=== PATIENT | male | born 1965 | race Caucasian/White ===

== ENCOUNTER 2021-04-20 06:31 | Day surgery (SDC) | payer OTHER, SELFPAY ==
--- NOTE | 2021-04-20 06:55 | PCM.HP.BLA ---
History and Physical Date of Admission: 04/20/21 Visit Reasons: CSCOPE, COUMADIN Chief Complaint: Colonoscopy [employer] Required: No Is patient in pain?: No Allergies No Known Allergies Allergy (Verified 04/13/21 14:38) Medications lisinopril 10 mg tablet 20 mg PO DAILY tab 04/13/21 [History Confirmed 04/13/21] metoprolol succinate 100 mg tablet,extended release 24 hr 100 mg PO DAILY 04/13/21 [History Confirmed 04/13/21] [facility] Medical History (Updated 04/13/21 @ 14:[address] Madi Robison MD) DVT (deep venous thrombosis) Surgical History (Updated 04/13/21 @ 14:35 by Brittani Suresh) History of bilateral inguinal hernia repair Family History Unknown No problems noted. Social History adopted: Yes Smoking Status: Never smoker alcohol intake: current alcohol intake frequency: holidays/special occasions only substance use type: does not use HPI HPI HPI: JAYSON GARCIA, is a 55 M who presents to the office today for surgical consultation regarding a colonoscopy. The patient is referred by Dr. Manuel Smith and a written copy of my surgical consult and recommendations will return to him. It is of note that October 09 the patient presented with complaints of left lower extremity swelling. October 12, 2020 duplex exam demonstrated acute proximal left femoral vein DVT. He has been treated with Lovenox 120 mg subcutaneously every 12 hours. Is referred for screening colonoscopy. It is anticipated that he will be can reverted to Coumadin subsequent to his endoscopy. I previously assisted the patient August 13, 2015 with a laparoscopic right inguinal herniorrhaphy and an umbilical herniorrhaphy with an 8 cm Ventralex mesh. The patient works at [employer]. He does not know the etiology to his left lower extremity DVT and he has persistent swelling but no pain. Most of the time he wear support hose. He has not had the COVID-19 vaccine and we did have discussion today regarding benefit risk ROS General General: No weight change, appetite, fatigue, colon cancer, breast cancer or weakness HEENT HEENT: No difficulty swallowing, eye injury, eye surgery, swollen glands or hoarseness Endo Endocrine: No thyroid disease, diabetes mellitus, thyroid cancer, Hair loss, heat intolerance or cold intolerance Skin Skin: No rash or changing moles Breast Breast: No left breast lump, right breast lump, nipple discharge, breast pain, abnormal mammogram, abnormal US or breast enlargement Musc Musculoskeletal: No back problems, arthritis, rheumatoid arthritis, gout or joint pain Cardio Cardiovascular: No murmur, pacemaker, heart disease, atrial fibrillation, high blood pressure, heart attack, heart stent, palpitations, shortness of breat with exertion or chest pain Psych Psychiatric: No depression, anxiety or hearing voices Resp Respiratory: No shortness of breath, No sleep apnea, No cough, No COPD, No asthma, No emphysema and No wheezing Gastro Gastrointestinal: No abdominal pain, No nausea or vomiting, No diarrhea, No constipation, No blood in stool, No acid reflux, No hemorrhoids, No ulcers, No gallbladder problem and No black,tarry stools Otf Hematologic: Yes blood thinners, No blood disorders, No bleeding, No anemia and Yes blood clots Neuro Neurologic: No system reviewed and no additional complaints, except as documented, No as per HPI, No abnormal gait, No abnormal hearing, No abnormal movements, No abnormal speech, No behavioral changes, No burning sensations, No confusion, No convulsions, No disequilibrium, No dizziness, No localized weakness, No frequent falls, No headache(s), No lack of coordination, No loss of vision, No memory loss, No numbness, No other visual disturbances, No radicular pain, No restless legs, No sensory deficit, No syncope, No tingling, No tremor(s), No weakness and No other Exam Const General: cooperative, healthy appearing, comfortable and no acute distress Nutritional Appearance: obese Orientation: alert and awake [facility] Head: normal to inspection Eyes General: appearance normal, both eyes and all related structures Chest Other: Increased anterior posterior diameter Resp Effort & Inspection: normal respiratory effort Auscultation: clear to auscultation bilaterally Cardio Rate: regular rate Rhythm: regular rhythm GI Other: Soft, overweight, nontender, healed and solid umbilical hernia repair Musc Cervical Spine: normal cervical lordosis Neuro Cognition: normal cognition Extrem Other: Notable nonpitting swelling of the left lower extremity much more so than the right. Nontender. No ulcerations Psych Affect: normal affect Assessment and Plan Assessment and Plan (1) Screening for intestinal cancer: Status: Acute (2) Anticoagulation adequate: Status: Acute (3) DVT (deep venous thrombosis): Status: Acute Plan - Dr. Madi Robison MD: I concur with recommendations to proceed with a screening colonoscopy with possible biopsy or polypectomy as indicated. He is aware of the technique, benefit, risk and alternatives. Has had an opportunity to ask questions answered. We additionally did discuss the benefit risk of the COVID-19 vaccine. Based upon his medical comorbidities, body habitus I offered to him to suggested that he consider it. The patient is on Lovenox therapeutic anticoagulation. We will have him hold his dosing the evening before and the morning of his planned colonoscopy. I will utilize monitored anesthesia care. If his colonoscopy is uneventful then he can resume his Lovenox the day of his procedure. I additionally discussed with him postphlebitic syndrome and chronic lower extremity swelling. The patient states that he is mostly compliant with his support hose and I encouraged and congratulated him on that. It is of note that today he was not wearing the stocking I appreciate the opportunity of continuing to assist with the surgical care Copy: Dr. Manuel Smith and Dr. Jamin Robison M.D., F.A.C.S. I have re-examined the patient. There are no clinical changes since date of exam.
[2021-04-20 07:03] VITALS: BP 135/86; PULSE 89; RESP 18; TEMP 36.8; O2SAT 98; BMI 35.6
[2021-04-20] MEDS: Lactated Ringers 1,000 ML 100 ML IV (07:11)
[2021-04-20 08:31] VITALS: BP 105/65; BP 135/86; PULSE 90; RESP 16; TEMP 36.6; O2SAT 96
--- NOTE | 2021-04-20 08:32 | OP.COLON_ITS ---
Patient Name: Servando Frank Procedure Date: 04/20/2021 8:07 AM Date of : 1965 Age: 55 Procedure: Colonoscopy Indications: Screening for colorectal malignant neoplasm Providers: Madi Robison MD Referring MD: Madi Robison MD Medicines: See the Anesthesia note for documentation of the administered medications Patient Profile: Last Colonoscopy: none. The patient's first colonoscopy is today. Complications: No immediate complications. Procedure: Pre-Anesthesia Assessment: - Prior to the procedure, a History and Physical was performed, and patient medications and allergies were reviewed. The patient's tolerance of previous anesthesia was also reviewed. The risks and benefits of the procedure and the sedation options and risks were discussed with the patient. All questions were answered, and informed consent was obtained. Prior Anticoagulants: The patient has taken Lovenox (enoxaparin), last dose was day of procedure. ASA Grade Assessment: II - A patient with mild systemic disease. After reviewing the risks and benefits, the patient was deemed in satisfactory condition to undergo the procedure. After I obtained informed consent, the scope was passed under direct vision. Throughout the procedure, the patient's blood pressure, pulse, and oxygen saturations were monitored continuously. The colonoscope was introduced through the anus and advanced to the cecum, identified by appendiceal orifice and ileocecal valve. The colonoscopy was performed without difficulty. The patient tolerated the procedure well. The quality of the bowel preparation was good. The ileocecal valve and the appendiceal orifice were photographed. Scope In: 8:16:00 AM Scope Withdrawal Time 0 hours 8 minutes 13 seconds Scope Out: 8:27:50 AM Total Procedure Duration Time 0 hours 11 minutes 50 seconds Findings: The perianal and digital rectal examinations were normal. Pertinent negatives include normal prostate (size, shape, and consistency). The colon (entire examined portion) appeared normal. Impression: - The entire examined colon is normal. - No specimens collected. Recommendation: - Discharge patient to home. - Resume previous diet. - Continue present medications. - Repeat colonoscopy in 10 years for screening purposes. Procedure Code(s): --- Professional --- 51888, Colonoscopy, flexible; diagnostic, including collection of specimen(s) by brushing or washing, when performed (separate procedure) Diagnosis Code(s): --- Professional --- Z12.11, Encounter for screening for malignant neoplasm of colon CPT copyright 2017 [employer]. All rights reserved. The codes documented in this report are preliminary and upon booking officer review may be revised to meet current compliance requirements. Madi Robison MD 04/20/2021 8:32:17 AM This report has been signed electronically. Number of Addenda: 0 Note Initiated On: 04/20/2021 8:07 AM
--- NOTE | 2021-04-20 08:33 | OP.CCLET_ITS ---
04/20/2021 Manuel Smith [address] [place] [address] Re : Colonoscopy procedure for Servando Frank Dear Dr. Smith This procedure was performed on Tuesday, April 20, 2021. My impressions and recommendations are as follows: Impressions : - The entire examined colon is normal. - No specimens collected. Recommendations : - Discharge patient to home. - Resume previous diet. - Continue present medications. - Repeat colonoscopy in 10 years for screening purposes. My findings are described in the full procedure note, which is enclosed. If I can be of further assistance, please feel free to contact me at Doctor phone number(s): Work: . Sincerely, Madi Robison MD 04/20/2021 8:32:17 AM This report has been signed electronically.
[2021-04-20 08:36] VITALS: BP 119/81; BP 135/86; PULSE 95; RESP 16; O2SAT 94
[2021-04-20 08:41] VITALS: BP 118/79; BP 135/86; PULSE 90; RESP 16; TEMP 37.1; O2SAT 95
[2021-04-20 08:55] VITALS: BP 135/86
== END 2021-04-20 09:09 | disposition home or self-care (01) ==
LOC: EN 06:32 → AC 06:33
PROVIDERS: PCP Family Medicine; Referring Provider Family Medicine; Visit Provider Surgery
PROC: 0DJD8ZZ Inspection of Lower Intestinal Tract, Via Natural or Artificial Opening Endoscopic (ICD-10-PCS; CPT 45378; principal; 2021-04-20 07:55)
DX: Z12.11 Encounter for screening for malignant neoplasm of colon (principal); E66.9 Obesity, unspecified; I82.412 Acute embolism and thrombosis of left femoral vein; I10 Essential (primary) hypertension; Z68.35 Body mass index [BMI] 35.0-35.9, adult; Z79.02 Long term (current) use of antithrombotics/antiplatelets
CPT/HCPCS: 45378; 87426; C9803; J7120; J2405

== ENCOUNTER → 2023-07-18 | Outpatient (CLI) | payer BC, SELFPAY ==
--- NOTE | 2023-07-18 08:30 | PET_ITS ---
EXAMINATION: FDG PET/CT ? INDICATIONS: 57-year-old male with a history of renal cell carcinoma, presenting for restaging examination. ? COMPARISON EXAMINATION: None available ? INDEX LESION SIZE SUV INTERPRETATION Left upper lung field, left upper lobe 11.8 mm 6.8 Fulfills quantitative criteria for viable neoplasm, histopathologic analysis recommended. ? TECHNIQUE: Following the intravenous administration of 13.85 mCi of F-18 deoxyglucose via the left antecubital fossa, multiplanar image acquisitions of the head, neck, chest, abdomen and pelvis to the level of the midthigh, obtained at one-hour post radiopharmaceutical administration contemporaneously interpreted with the current CT of the chest, abdomen and pelvis dated 07/18/2023 via coregistration reveal: ? SERUM GLUCOSE LEVEL:? 131 mg/dL? HEIGHT:?? 75 inches WEIGHT:?? 290 pounds ? FINDINGS: ? HEAD/NECK:? There is no evidence of abnormal increased glucose metabolism in the pharyngeal mucosal space, parapharyngeal space, oropharynx, bilateral-lateral and anterior neck, hypopharynx and distribution of the larynx. ? The visualized portion of the cerebral cortical-subcortical structures demonstrate symmetric and preserved glucose metabolism. ? CHEST:? Facilitated uptake is noted in the left upper medial lung zone, left upper lobe. The calculated maximum standard uptake value is 6.8. The maximal axial diameter of the corresponding morphologic abnormality is 11.8 mm. ? CT of the chest demonstrates the following anatomic characteristics: The calcified density defined in the right mid lung field, right lower lobe demonstrates no evidence of increased tracer uptake. Bilateral axillary soft tissue densities are ametabolic. Mediastinal soft tissue reveals no evidence of increased tracer uptake. Coronary artery calcification is observed. ? ABDOMEN/PELVIS:? Normal physiologic distribution of the radiopharmaceutical is identified in the hepatic (4.6) and splenic parenchyma, left renal unit, urinary bladder, and visualized intestinal tract. ? CT of the abdomen and pelvis is remarkable for the following: Surgical clips are identified in the right renal bed with absence of the right renal unit commensurate with previous right nephrectomy. Atherosclerotic calcification is defined in the abdominal aorta without evidence of dilatation, aneurysm formation. Pelvic arterial calcification is observed. A fat containing right inguinal hernia is noted. Right and left inguinal soft tissue densities reveal no evidence of increased tracer uptake. ? SKELETAL:? There is no evidence of quantitatively significant enhanced glucose metabolism on meticulous inspection of the appendicular and axial skeletal structures. ? Degenerative changes defined in the thoracic and lumbar spine demonstrate no evidence of increased glucose metabolism. There are no sclerotic, mixed sclerotic-lytic, or primarily lytic changes defined in the axial skeletal structures with evidence of increased FDG uptake. ? PET/PET/CT Tumor Base -Thigh Subs IMPRESSION: 1. ABNORMAL EXAMINATION INDICATIVE OF MALIGNANT-VIABLE NEOPLASM. 2. Increased radiopharmaceutical concentration defined in the left upper lung field, left upper lobe fulfills quantitative criteria for viable neoplasm. Histopathologic analysis is recommended. 3. No other definitive scintigraphic abnormalities are demonstrated. Electronic Signature Ricardo Song D.O. Accurate Quantification of SUVs for this report are calculated using the exclusive [employer]. ([place]. Patent No. [id number] [phone] B2 [phone] [place] patent [phone]). Standardization and correction of the FDG SUV metric via [employer] technology allow for vendor non-specific objective quantitative examination comparison and optimization of the sensitivity and specificity of the FDG PET-CT examination. . [email or web address] Electronically Signed: Ricardo Song DO at 22:14 EST ,
== END | disposition home or self-care (01) ==
LOC: ONC 08:03
PROVIDERS: PCP Family Medicine; Referring Provider Internal Medicine Hematology & Oncology; Visit Provider Internal Medicine Hematology & Oncology
DX: C64.1 Malignant neoplasm of right kidney, except renal pelvis (principal); N18.31 Chronic kidney disease, stage 3a; R91.1 Solitary pulmonary nodule
CPT/HCPCS: 78815; A9552

== ENCOUNTER 2023-12-29 10:48 | Inpatient (IN) | payer OTHER, SELFPAY ==
[2023-12-29 10:48] VITALS: BP 129/76; PULSE 79; RESP 19; TEMP 35.8; O2SAT 96; BMI 34.9
--- NOTE | 2023-12-29 11:16 | ED.RN ---
Manuel ROMANO notified of vt reading for BGL. IV fluids initiated
[2023-12-29] MEDS: 0.9% Normal Saline (1000mL) 1,000 ML 999 ML IV ×3 (11:25→13:19)
--- NOTE | 2023-12-29 11:25 | EX.ED.DYSGE1 ---
HPI <CLOVIS Peralta - Last Filed: 12/29/23 12:41> History of Present Illness Chief Complaint: Hyperglycemia Narrative Narrative: Patient is a 58-year-old male with history of blood clots on Eliquis, history of kidney cancer, hypertension, obesity presents to the emergency department for hyperglycemia. Per the patient, the last 3 days, the patient's been more clammy in the morning, has been feeling more fatigued, having blurred vision as well as frequent urination. Patient states that he took his blood sugar with one of his friends meters, and it was 500. He called his doctor told to go to the emergency department. Patient denies any nausea or vomiting. Patient [place] any chest pain or shortness of breath. PFSH <CLOVIS Peralta - Last Filed: 12/29/23 12:41> [facility] Medical History (Updated 12/29/23 @ 19:[address] Anuj Ambriz, DO) Cancer of kidney Alcohol use Non-smoker History of edema Hypertension DVT (deep venous thrombosis) Home Medications ?Medication ?Instructions ?Recorded ?Last Taken ?Type acetaminophen 500 mg capsule 500 mg PO Q8H PRN pain 12/29/23 Unknown History amlodipine 10 mg tablet 10 mg PO DAILY HTN 12/29/23 12/29/23 08:00 History apixaban 5 mg tablet (Eliquis) 5 mg PO BID DVT 12/29/23 12/29/23 08:00 History carvedilol 25 mg tablet 25 mg PO BID Heart 12/29/23 12/29/23 08:00 History lisinopril 40 mg tablet 80 mg PO DAILY HTN 12/29/23 12/29/23 08:00 History Allergy/AdvReac Type Severity Reaction Status Date / Time No Known Allergies Allergy Verified 04/19/21 09:40 Family History (Updated 04/13/21 @ 14:35 by Brittani Suresh) Unknown No problems noted. Surgical History H/O kidney removal Hx of hernia repair History of bilateral inguinal hernia repair Social History (Updated 12/29/23 @ 13:30 by Rebekah Frederick) adopted: Yes Smoking Status: Never smoker alcohol intake: current alcohol intake frequency: holidays/special occasions only substance use type: does not use ROS <BEVERLY PeraltaC - Last Filed: 12/29/23 12:41> ROS ED ROS Narrative Constitutional: Negative for fever, chills, weight loss. Positive for weakness Eyes: Negative for vision loss, double vision. Positive vision change ENT: Negative for any sore throat, ear pain, congestion Cardiovascular: Negative for any chest pain, tightness, palpitations Respiratory: Negative for any cough, sputum production, hemoptysis, dyspnea, dyspnea on exertion, orthopnea Gastrointestinal: Negative for any abdominal pain, nausea, vomiting, diarrhea, constipation, blood in stool, blood in vomit : Negative for any dysuria, retention, blood in urine. Positive for urinary frequency Muscle skeletal: Negative for any neck pain, back pain. Neurological: Negative for any headache, syncope, dizziness Skin: Negative for any rashes, itching, abrasions, lacerations Psychiatric: Negative for any depression, anxiety, stress, suicidal ideation, homicidal ideation Hematologic: Negative for any excessive bruising, easy bleeding EXAM <CLOVIS Peralta - Last Filed: 12/29/23 12:41> Physical Exam Narrative Exam Narrative: Vital signs reviewed. HEET: Head normocephalic atraumatic, TMs clear bilaterally. Posterior pharynx is clear, moist mucous membranes. Nares clear bilaterally. Neck: Supple with no lymphadenopathy or tenderness. No signs of meningismus. Cardiac: Regular rate and rhythm no murmurs gallops or rubs, equal peripheral pulses bilaterally. Respiratory: Lungs clear to auscultation bilaterally. No chest tenderness. Abdomen: Soft, nontender, nondistended. No abdominal bruit or pulsatile masses. No hepatosplenomegaly Extremities: No peripheral edema, no signs of gross trauma or deformity. Active full range of motion of all extremities. Neuro: Cranial nerves II through XII intact, no focal neurological deficits. Skin: Clean dry and intact with no rash, purpura, petechiae, vesicles or pustules. Backs/flank: No CVA tenderness, no midline spinal tenderness, no deformity. Psych: Normal mood and affect. No SI, HI or acute psychosis. Const Vital Signs: 12/29/23 10:48 12/29/23 11:17 Temperature 96.4 F L Temperature Source Temporal Pulse Rate 79 Respiratory Rate 19 H Respiratory Effort Normal Non-Labored Respiratory Pattern Normal Blood Pressure 129/76 H Blood Pressure Mean 93 Pulse Ox 96 Oxygen Delivery Method Room Air <Dr. Anuj Ambriz DO - Last Filed: 12/29/23 19:17> Physical Exam Const Vital Signs: 12/29/23 10:48 12/29/23 11:17 Temperature 96.4 F L Temperature Source Temporal Pulse Rate 79 Respiratory Rate 19 H Respiratory Effort Normal Non-Labored Respiratory Pattern Normal Blood Pressure 129/76 H Blood Pressure Mean 93 Pulse Ox 96 Oxygen Delivery Method Room Air MDM <CLOVIS Peralta - Last Filed: 12/29/23 12:41> [facility] Lab Data Labs: Laboratory Results - last 24 hr 12/29/23 12/29/23 12/29/23 11:02 11:15 11:44 WBC 5.2 RBC 4.53 L Hgb 13.5 Hct 39.5 L MCV 87.2 MCH 29.8 MCHC 34.2 RDW Std Deviation 39.2 RDW Coeff of Ramu 12.2 Plt Count 141 L MPV 11.2 Immature Gran % (Auto) 0.400 Neut % (Auto) 70.4 H Lymph % (Auto) 20.0 [place] % (Auto) 6.6 Eos % (Auto) 1.6 Baso % (Auto) 1.0 Absolute Neuts (auto) 3.6 Absolute Lymphs (auto) 1.03 Nucleated RBC % 0 Sodium 120 L Potassium 5.9 H Chloride 89 L Carbon Dioxide 20.0 L Anion Gap 11 BUN 53 H Creatinine 3.01 H Estim Creat Clear Calc 38.84 Est GFR (MDRD) Af Amer 28 L Est GFR (MDRD) Non-Af 23 L BUN/Creatinine Ratio 17.6 Glucose 882 H* Hemoglobin A1c 9.3 H Calcium 8.9 Total Bilirubin 1.30 H AST 30 ALT 34 Alkaline Phosphatase 112 Total Protein 7.7 Albumin 3.9 Globulin 3.8 Albumin/Globulin Ratio 1.0 Urine Color Yellow Urine Clarity Clear Urine pH 6.0 Ur Specific [place] 1.010 Urine Protein Negative Urine Glucose (UA) 1000 H Urine Ketones 5 H Urine Occult Blood 25 H Urine Nitrite Negative Urine Bilirubin Negative Urine Urobilinogen Normal Ur Leukocyte Esterase Negative Urine RBC 0 SEEN Urine WBC 0-5 SEEN Ur Squamous Epith Cells 0-5 SEEN Urine Bacteria RARE Urine Mucus 0 SEEN Acetone Level POC Glucose > 500 H* 12/29/23 11:48 WBC RBC Hgb Hct MCV MCH MCHC RDW Std Deviation RDW Coeff of Ramu Plt Count MPV Immature Gran % (Auto) Neut % (Auto) Lymph % (Auto) [place] % (Auto) Eos % (Auto) Baso % (Auto) Absolute Neuts (auto) Absolute Lymphs (auto) Nucleated RBC % Sodium Potassium Chloride Carbon Dioxide Anion Gap BUN Creatinine Estim Creat Clear Calc Est GFR (MDRD) Af Amer Est GFR (MDRD) Non-Af BUN/Creatinine Ratio Glucose Hemoglobin A1c Calcium Total Bilirubin AST ALT Alkaline Phosphatase Total Protein Albumin Globulin Albumin/Globulin Ratio Urine Color Urine Clarity Urine pH Ur Specific [place] Urine Protein Urine Glucose (UA) Urine Ketones Urine Occult Blood Urine Nitrite Urine Bilirubin Urine Urobilinogen Ur Leukocyte Esterase Urine RBC Urine WBC Ur Squamous Epith Cells Urine Bacteria Urine Mucus Acetone Level NEGATIVE POC Glucose EKG EKG shows normal sinus rhythm: Attestation: I personally reviewed and interpreted this EKG as follows: Interpretation: Sinus Rhythm Comments: EKG shows normal sinus rhythm, rate of 70 bpm, NM 178 ms, QRS duration 180 ms, no acute ST elevation, no acute infarct noted. Treatment and Re-Evaluation :: Differential diagnosis includes however is not limited to: DKA, hyperglycemia, new onset type 2 diabetes, renal insufficiency, dehydration Patient appears to be in no obvious respiratory distress, vital signs are stable, patient is not toxic appearing. Patient presents to the emergency department with complaints of elevated blood sugar as well as symptoms such as blurred vision frequent urination, clamminess. Patient did have a blood sugar over 600 here. Patient be given 2 L of normal saline. Patient received some basic laboratory values as well as an acetone to rule out any DKA. Patient will be reevaluated. Patient's laboratory values showed a normal CBC, patient's chemistries show multiple abnormalities. Patient's sodium was 120, this is likely secondary to the patient's glucose of 882. Total bilirubin 1.3, patient's acetone level was negative. Patient's anion gap was negative. Patient's creatinine was 3.01. I did look at the patient's past creatinine from a couple months ago, and it was 1.5. Secondary to the patient having 1 kidney, I do believe the patient would benefit from admission to the hospital. I will reach out to the hospitalist. Patient acetone was negative. Patient was given 2 L normal saline. I will give the patient 10 units of subcu insulin. The patient will also receive EKG. I spoke with admitting physician, patient admitted to PCU full. EKG was unremarkable. Patient remained stable for admission. <Dr. Anuj Ambriz, DO - Last Filed: 12/29/23 19:17> [facility] Lab Data Attestation: I reviewed the patient's lab results. Labs: Laboratory Results - last 24 hr 12/29/23 12/29/23 12/29/23 11:02 11:15 11:44 WBC 5.2 RBC 4.53 L Hgb 13.5 Hct 39.5 L MCV 87.2 MCH 29.8 MCHC 34.2 RDW Std Deviation 39.2 RDW Coeff of Ramu 12.2 Plt Count 141 L MPV 11.2 Immature Gran % (Auto) 0.400 Neut % (Auto) 70.4 H Lymph % (Auto) 20.0 [place] % (Auto) 6.6 Eos % (Auto) 1.6 Baso % (Auto) 1.0 Absolute Neuts (auto) 3.6 Absolute Lymphs (auto) 1.03 Nucleated RBC % 0 Sodium 120 L Potassium 5.9 H Chloride 89 L Carbon Dioxide 20.0 L Anion Gap 11 BUN 53 H Creatinine 3.01 H Estim Creat Clear Calc 38.84 Est GFR (MDRD) Af Amer 28 L Est GFR (MDRD) Non-Af 23 L BUN/Creatinine Ratio 17.6 Glucose 882 H* Hemoglobin A1c 9.3 H Calcium 8.9 Total Bilirubin 1.30 H AST 30 ALT 34 Alkaline Phosphatase 112 Total Protein 7.7 Albumin 3.9 Globulin 3.8 Albumin/Globulin Ratio 1.0 Urine Color Yellow Urine Clarity Clear Urine pH 6.0 Ur Specific [place] 1.010 Urine Protein Negative Urine Glucose (UA) 1000 H Urine Ketones 5 H Urine Occult Blood 25 H Urine Nitrite Negative Urine Bilirubin Negative Urine Urobilinogen Normal Ur Leukocyte Esterase Negative Urine RBC 0 SEEN Urine WBC 0-5 SEEN Ur Squamous Epith Cells 0-5 SEEN Urine Bacteria RARE Urine Mucus 0 SEEN Acetone Level POC Glucose > 500 H* 12/29/23 11:48 WBC RBC Hgb Hct MCV MCH MCHC RDW Std Deviation RDW Coeff of Ramu Plt Count MPV Immature Gran % (Auto) Neut % (Auto) Lymph % (Auto) [place] % (Auto) Eos % (Auto) Baso % (Auto) Absolute Neuts (auto) Absolute Lymphs (auto) Nucleated RBC % Sodium Potassium Chloride Carbon Dioxide Anion Gap BUN Creatinine Estim Creat Clear Calc Est GFR (MDRD) Af Amer Est GFR (MDRD) Non-Af BUN/Creatinine Ratio Glucose Hemoglobin A1c Calcium Total Bilirubin AST ALT Alkaline Phosphatase Total Protein Albumin Globulin Albumin/Globulin Ratio Urine Color Urine Clarity Urine pH Ur Specific [place] Urine Protein Urine Glucose (UA) Urine Ketones Urine Occult Blood Urine Nitrite Urine Bilirubin Urine Urobilinogen Ur Leukocyte Esterase Urine RBC Urine WBC Ur Squamous Epith Cells Urine Bacteria Urine Mucus Acetone Level NEGATIVE POC Glucose Treatment and Re-Evaluation :: Differential diagnosis includes however is not limited to: DKA, hyperglycemia, new onset type 2 diabetes, renal insufficiency, dehydration Patient appears to be in no obvious respiratory distress, vital signs are stable, patient is not toxic appearing. Patient presents to the emergency department with complaints of elevated blood sugar as well as symptoms such as blurred vision frequent urination, clamminess. Patient did have a blood sugar over 600 here. Patient be given 2 L of normal saline. Patient received some basic laboratory values as well as an acetone to rule out any DKA. Patient will be reevaluated. Patient's laboratory values showed a normal CBC, patient's chemistries show multiple abnormalities. Patient's sodium was 120, this is likely secondary to the patient's glucose of 882. Total bilirubin 1.3, patient's acetone level was negative. Patient's anion gap was negative. Patient's creatinine was 3.01. I did look at the patient's past creatinine from a couple months ago, and it was 1.5. Secondary to the patient having 1 kidney, I do believe the patient would benefit from admission to the hospital. I will reach out to the hospitalist. Patient acetone was negative. Patient was given 2 L normal saline. I will give the patient 10 units of subcu insulin. The patient will also receive EKG. I spoke with admitting physician, patient admitted to PCU full. EKG was unremarkable. Patient remained stable for admission. Attending note: Patient seen and evaluated with vending machine collector. I perform my own [id number] evaluation. I agree with the plan of work-up. Presents polyuria, polydipsia urine frequency over 3 days. No history of diabetes. He states today felt clammy drink some apple juice and cranberry juice before arrival. Blood glucose on arrival over 600. No history of diabetes reported and seen on his phone his A1c was 5.28 June 2023. History of renal cell cancer with right nephrectomy 3 years ago. Denies recent cough, recent vomiting or diarrhea. Denies fevers or any dyspnea. Denies chest pains. On exam alert nontoxic no acute distress soft abdomen. Patient had labs drawn, no DKA on labs. Hyperglycemia sugars in the 800s. Creatinine of 3 elevated from his labs a month ago which was 1.5. His potassium 5.9. EKG obtained shows no hyperkalemic changes. Ordered for total 2 L of fluid, he is given insulin which also help shift his potassium. New MATTEO with single kidney, therefore discussed with hospitalist for admission. Discharge Plan Dx/Rx/DC Orders Clinical Impression: New onset type 2 diabetes mellitus, Acute hyperglycemia, Acute hyperkalemia, Acute kidney injury, Pseudohyponatremia Disposition Disposition: Acute Care Hospital [facility] Discharge Date/Time: 12/29/23 12:48
[2023-12-29 11:31] LABS: Bedside Glucose > 500 mg/dL (74-106)
[2023-12-29 11:31] LABS: Absolute Lymphocyte Count 1.03 X10^3/uL (0.83-4.51); Absolute Neutrophil Count 3.6 X10^3/uL (2.0-7.7); Basophil# 0.05 X10^3/uL; Eosinophil# 0.08 X10^3/uL; Eosinophils% 1.6 % (0-5); Hematocrit 39.5 % (40-54); Hemoglobin 13.5 g/dL (13.0-16.5); Lymphocyte # 1.03 X10^3/ul (0.83-4.51); Mean Corp Hgb Conc 34.2 g/dL (32-36); Mean Corpuscular Hgb 29.8 pg (27.0-32.0); Mean Corpuscular Volume 87.2 fL (80-94); Mean Platelet Vol. 11.2 fl (6.2-12.0); Monocyte# 0.34 X10^3/uL; Monocyte% 6.6 % (0-10); NRBC Flagged by Analyzer 0 % (0-5); Neutrophil # 3.64 X10^3/uL (2.7-7.7); Neutrophil % 70.4 % (47-70); Platelet Count 141 K/mm3 (150-450); RBC Distribution Width CV 12.2 % (11.6-14.6); RBC Distribution Width SD 39.2 fl (35.1-43.9); Red Blood Count 4.53 M/mm3 (4.6-6.2); White Blood Count 5.2 K/mm3 (4.4-11.0)
[2023-12-29 11:52] LABS: Mucous, Urine 0 SEEN /hpf (<or=2+); Red Blood Cells-Urine 0 SEEN /hpf (0-5)
[2023-12-29 11:54] LABS: AST(SGOT) 30 U/L (15-37); Alanine Aminotransfer ALT/SGPT 34 U/L (16-61); Albumin, Serum 3.9 g/dL (3.2-5.0); Alkaline Phosphatase 112 U/L (45-117); Anion Gap 11 (5-15); BUN 53 mg/dL (7-18); BUN/Creat Ratio 17.6 RATIO (10-20); Calcium,Total 8.9 mg/dL (8.5-10.1); Chloride 89 mmol/L (98-107); Creatinine, Serum 3.01 mg/dL (0.70-1.30); EST Glomerular Filtration Rate 23 mL/min (>60); Est Glom Filt Rate - Afr Amer 28 mL/min (>60); Estimated Creatinine Clearance 38.84 ml/min; Globulin 3.8 g/dL (2.2-4.2); Glucose 882 mg/dL (74-106); Potassium 5.9 mmol/L (3.5-5.1); Protein, Total 7.7 g/dL (6.4-8.2); Sodium Level 120 mmol/L (136-145)
[2023-12-29 11:54] LABS: Color, Urine Yellow (Yellow); Glucose, Dipstick 1000 mg/dl (Normal); Ketone-Dipstick 5 mg/dl (Negative); Leukocyte Esterase-Dipstick Negative /ul (Negative); Nitrite-Dipstick Negative (Negative); Occult Blood-Urine 25 /ul (Negative); Protein-Dipstick Negative (Negative); Urine Bilirubin Dipstick Negative (Negative); Urine Clarity Clear (Clear); Urine Urobilinogen Normal (Normal)
--- NOTE | 2023-12-29 11:54 | ED.RN ---
lab called blood sugar 882. dr werner
[2023-12-29 12:01] LABS: Bacteria RARE /hpf (None Seen); Squamous Epithelial Cells - UA 0-5 SEEN /hpf (0-5); White Blood Cells 0-5 SEEN /hpf (0-5)
--- NOTE | 2023-12-29 12:14 | EKG12_ITS ---
Test Reason : Blood Pressure : / mmHG Vent. Rate : 070 BPM Atrial Rate : 070 BPM P-R Int : 178 ms QRS Dur : 108 ms QT Int : 390 ms P-R-T Axes : 042 020 042 degrees QTc Int : 421 ms Normal sinus rhythm Normal ECG Confirmed by MARNIE ROACH MD ([id number]), state editor RADHA ORTEZ ([id number]) on 01/01/2024 8:32:46 AM Referred By: FARRAH Confirmed By:MARNIE ROACH MD
[2023-12-29 12:31] LABS: Hemoglobin A1c 9.3 % (3.8-5.6)
[2023-12-29] MEDS: Insulin Lispro 100 UNIT/ML INSULN.PEN 10 UNIT SC (12:31)
[2023-12-29 12:32] VITALS: BP 142/77; PULSE 66; RESP 16; TEMP 36.7; O2SAT 98
--- NOTE | 2023-12-29 12:54 | PCM.HP.STD ---
HPI - General General Date of Admission: 12/29/23 Date of Service: 12/29/23 HPI Narrative JAYSON GARCIA, is a 58 M who presents with blurry vision and frequent urination. Patient symptoms started a couple of weeks prior to coming in. In addition to above symptoms patient did experience blurry vision. Finally elected to present to the emergency department. Blood glucose on admission was 882 patient was found to have creatinine of 3.01 with potassium of 5.8. Baseline creatinine from September was 1.5. An assessment of hyperosmolar nonketotic state in the newly diagnosed diabetes mellitus type 2 patient was made started on IV fluids insulin and admitted to a monitored bed for subsequent management [facility] Medical History (Updated 12/29/23 @ 12:41 by CLOVIS Peralta) Cancer of kidney Alcohol use Non-smoker History of edema Hypertension DVT (deep venous thrombosis) Home Medications ?Medication ?Instructions ?Recorded ?Last Taken ?Type enoxaparin 120 mg/0.8 mL 120 mg subcut BID BLOOD CLOT 04/19/21 04/19/21 06:00 History subcutaneous syringe acetaminophen 500 mg capsule 500 mg PO Q8H PRN pain 12/29/23 Unknown History amlodipine 10 mg tablet 10 mg PO DAILY 12/29/23 Unknown History apixaban 5 mg tablet (Eliquis) 5 mg PO BID 12/29/23 Unknown History carvedilol 25 mg tablet 25 mg PO BID 12/29/23 Unknown History lisinopril 40 mg tablet 80 mg PO DAILY 12/29/23 Unknown History Allergy/AdvReac Type Severity Reaction Status Date / Time No Known Allergies Allergy Verified 04/19/21 09:40 Family History (Updated 04/13/21 @ 14:35 by Brittani Suresh) Unknown No problems noted. Surgical History (Updated 12/29/23 @ 11:18 by Lauren Devlin) H/O kidney removal Hx of hernia repair History of bilateral inguinal hernia repair Social History (Updated 04/13/21 @ 14:37 by Brittani Suresh) adopted: Yes Smoking Status: Never smoker alcohol intake: current alcohol intake frequency: holidays/special occasions only substance use type: does not use ROS ROS Narrative GENERAL: denies fever, chills, HEENT: Blurry vision RESPIRATORY: denies cough, sputum production, CARDIAC: denies chest pain, palpitations, orthopnea, PND GASTROINTESTINAL: denies abdominal pain, nausea, vomiting, melena, GENITOURINARY: Frequency EXTREMITY: denies swelling MUSCULOSKELETAL: denies current joint pain or tenderness NEUROLOGIC: denies focal numbness, weakness, tingling HEMATOLOGIC: denies easy bruising and/or hemorrhage INTEGUMENT: denies rashes PSYCHIATRIC: denies suicidal or homicidal ideation Vital Signs Vital Signs Vital Signs: 12/29/23 10:48 12/29/23 11:17 12/29/23 12:32 Temperature 96.4 F L 98.1 F Temperature Source Temporal Pulse Rate 79 66 Respiratory Rate 19 H 16 Respiratory Effort Normal Non-Labored Respiratory Pattern Normal Blood Pressure 129/76 H 142/77 H Blood Pressure Mean 93 98 Pulse Ox 96 98 Oxygen Delivery Method Room Air Weight Weight: 126.779 kg Body Mass Index (BMI) 34.9 Physical Exam Narrative GENERAL: cooperative HEENT: Atraumatic; normocephalic EYES; Anicteric, Normal Conjunctiva NECK; supple, normal thyroid, RESPIRATORY: Diminished to auscultation CARDIOVASCULAR: Regular S1 S2, GI: soft, normoactive bowel sounds, : No Renal angle tenderness; EXTREMITIES: No edema, no clubbing, MUSCULOSKELETAL: no muscle wasting NEURO: Awake; no lateralizing signs. SKIN: No Rash PSYCH; Flat affect Results Lab / Micro Data 12/29/23 11:15 12/29/23 11:15 Labs: Laboratory Results - last 24 hr 12/29/23 11:02: POC Glucose > 500 H* 12/29/23 11:15: WBC 5.2, RBC 4.53 L, Hgb 13.5, Hct 39.5 L, MCV 87.2, MCH 29.8, MCHC 34.2, RDW Std Deviation 39.2, RDW Coeff of Ramu 12.2, Plt Count 141 L, MPV 11.2, Immature Gran % (Auto) 0.400, Neut % (Auto) 70.4 H, Lymph % (Auto) 20.0, [place] % (Auto) 6.6, Eos % (Auto) 1.6, Baso % (Auto) 1.0, Absolute Neuts (auto) 3.6, Absolute Lymphs (auto) 1.03, Nucleated RBC % 0, Sodium 120 L, Potassium 5.9 H, Chloride 89 L, Carbon Dioxide 20.0 L, Anion Gap 11, BUN 53 H, Creatinine 3.01 H, Estim Creat Clear Calc 38.84, Est GFR (MDRD) Af Amer 28 L, Est GFR (MDRD) Non-Af 23 L, BUN/Creatinine Ratio 17.6, Glucose 882 H*, Hemoglobin A1c 9.3 H, Calcium 8.9, Total Bilirubin 1.30 H, AST 30, ALT 34, Alkaline Phosphatase 112, Total Protein 7.7, Albumin 3.9, Globulin 3.8, Albumin/Globulin Ratio 1.0 12/29/23 11:44: Urine Color Yellow, Urine Clarity Clear, Urine pH 6.0, Ur Specific [place] 1.010, Urine Protein Negative, Urine Glucose (UA) 1000 H, Urine Ketones 5 H, Urine Occult Blood 25 H, Urine Nitrite Negative, Urine Bilirubin Negative, Urine Urobilinogen Normal, Ur Leukocyte Esterase Negative, Urine RBC 0 SEEN, Urine WBC 0-5 SEEN, Ur Squamous Epith Cells 0-5 SEEN, Urine Bacteria RARE, Urine Mucus 0 SEEN 12/29/23 11:48: Acetone Level NEGATIVE Assessment & Plan Assessment/Plan (1) Acute kidney injury: (2) Acute hyperkalemia: (3) Acute hyperglycemia: (4) New onset type 2 diabetes mellitus: PLAN: Plan Patient is a 58-year-old gentleman presenting with blurred vision and frequent urination found to have hyperglycemia consistent with new onset diabetes melitis type II 1. Hyperosmolar nonketotic state ? Patient has been admitted to monitored bed started on aggressive IV fluid resuscitation as well as insulin with Q4 for BMP ordered 2. Hyponatremia ? Secondary to pseudohyponatremia from patient hyperglycemia do expect improvement with treatment of patient underlying hyperglycemia 3. New onset diabetes mellitus type 2 ? Patient presented with HONK plan is to start long-acting insulin once patient hypoglycemic nonketotic state resolves. Patient was to be provided with diabetic education 4. Acute kidney injury -Patient started on IV fluid with subsequent monitoring of lites ordered 5. Hyperkalemia ? Secondary to MATTEO patient is on lisinopril discontinued patient did receive albuterol as well as glucose with insulin in the ED EKG obtained 6. Chronic kidney disease stage IIIa with baseline creatinine of 1.5 ? Patient presented with MATTEO management as discussed above 7. History of renal cell carcinoma ? Status post nephrectomy with subsequent neoadjuvant chemotherapy with Keytruda 8. History of left lower extremity DVT ? Patient is on systemic anticoagulation with apixaban 9. Hypertension - Blood pressure controlled, home medications except for lisinopril continued with dose adjustment as needed 10. Class I obesity with BMI of 35 ? Complicating care weight loss advised 11. DVT prophylaxis patient already on apixaban Time spent in the patient's overall evaluation,decision-making process, review of diagnostic data, adjustment of management, discussion with other providers, nursing nursing and ancillary staff involved in patient's care documentation, 80 Minutes Advance planning; did discuss with the patient and family regarding advanced directives as well as CODE STATUS. Did explain the various scenarios involved ( FULL CODE, DNR CCA, DNR CCA with no intubation, and DNR CC and what each meant) patient elected to remain full code with CPR and intubation.. Order was placed. Time spent on discussion 16 minutes. Charges/Coding Visit Charges Inpatient E&M: 48527 Init Hosp L3 Procedures Hospitalists Procedures: 47462 Advncd Care Plan 30 Min
[2023-12-29 13:01] VITALS: BMI 34.7
[2023-12-29 13:12] VITALS: BP 135/78; PULSE 68; RESP 18; TEMP 36.9; O2SAT 96
--- NOTE | 2023-12-29 13:49 | CASEMGMT ---
PEEWEE COVINGTON Assessment Face to Face with patient for initial transition planning/care coordination assessment. PEEWEE COVINGTON introduced self and role at [facility], pt voices understanding. Pt is A&Ox4 and is resting comfortably in bed and is calm. Care providers, pharmacy, and demographics verified. Admitting dx: Hyperosmolar Nonketotic State, MATTEO. LACE Strata: 2 PCP: Jamin Pineda Specialists: Sarah (Oncology), Cullen ([facility]), Dr. Macario (K[facility]) Preferred Pharmacy: [facility] Insurance: Kavin Prescription Benefit: Yes LNOK: Jodi Frank (W) Living Arrangements: Pt lives with his in a single story home with a BM with 2 steps to enter ADLs/IADLs: Ind Transportation: Self, DME: [employer]. Pt states that he does not have a BGM at home. Rx filled out and will need MD signing. Rx placed on chart. HHC/SNF: Denies history or needs Pt?s goal: Home Plan: Home with BGM and supplies. Pt states that he feels safe discharging home once he is medically ready. Pt denies further needs. CM to follow. Joe Rashid RN, CM
[2023-12-29] MEDS: Insulin Lispro 100 UNIT in 0.9% Normal Saline (100mL Bag) 99 ML 12.7 UNIT CONT INF (13:52)
[2023-12-29 13:53] LABS: Troponin-I HS 6 pg/mL (3.0-78.0)
[2023-12-29 13:55] LABS: Anion Gap 12 (5-15); BUN 50 mg/dL (7-18); BUN/Creat Ratio 18.5 RATIO (10-20); Calcium,Total 8.8 mg/dL (8.5-10.1); Chloride 95 mmol/L (98-107); Creatinine, Serum 2.71 mg/dL (0.70-1.30); EST Glomerular Filtration Rate 26 mL/min (>60); Est Glom Filt Rate - Afr Amer 31 mL/min (>60); Estimated Creatinine Clearance 43.04 ml/min; Glucose 700 mg/dL (74-106); Potassium 5.2 mmol/L (3.5-5.1); Sodium Level 126 mmol/L (136-145)
[2023-12-29] MEDS: 0.9% Normal Saline (1000mL) 1,000 ML 500 ML IV (14:16)
[2023-12-29 15:50] LABS: Anion Gap 7 (5-15); BUN 45 mg/dL (7-18); BUN/Creat Ratio 18.6 RATIO (10-20); Calcium,Total 8.8 mg/dL (8.5-10.1); Chloride 103 mmol/L (98-107); Creatinine, Serum 2.42 mg/dL (0.70-1.30); EST Glomerular Filtration Rate 30 mL/min (>60); Est Glom Filt Rate - Afr Amer 36 mL/min (>60); Glucose 468 mg/dL (74-106); Potassium 4.1 mmol/L (3.5-5.1); Sodium Level 133 mmol/L (136-145); Troponin-I HS 7 pg/mL (3.0-78.0)
[2023-12-29 15:59] LABS: Bedside Glucose > 500 mg/dL (74-106)
[2023-12-29 15:59] LABS: Bedside Glucose 445 mg/dL (74-106)
[2023-12-29 16:11] LABS: Bedside Glucose 402 mg/dL (74-106)
[2023-12-29] MEDS: 0.9% Normal Saline (1000mL) 1,000 ML 250 ML IV (16:18)
[2023-12-29 17:06] VITALS: BP 141/82; PULSE 69; RESP 18; TEMP 36.9; O2SAT 97
[2023-12-29 17:20] LABS: Bedside Glucose 359 mg/dL (74-106)
[2023-12-29 18:07] LABS: Bedside Glucose 396 mg/dL (74-106)
[2023-12-29 19:13] LABS: Bedside Glucose 371 mg/dL (74-106)
[2023-12-29 19:34] LABS: Anion Gap 6 (5-15); BUN 37 mg/dL (7-18); BUN/Creat Ratio 16.4 RATIO (10-20); Calcium,Total 8.4 mg/dL (8.5-10.1); Chloride 104 mmol/L (98-107); Creatinine, Serum 2.25 mg/dL (0.70-1.30); EST Glomerular Filtration Rate 32 mL/min (>60); Est Glom Filt Rate - Afr Amer 39 mL/min (>60); Estimated Creatinine Clearance 51.84 ml/min; Glucose 362 mg/dL (74-106); Potassium 4.3 mmol/L (3.5-5.1); Sodium Level 134 mmol/L (136-145); Troponin-I HS 7 pg/mL (3.0-78.0)
[2023-12-29 20:20] LABS: Bedside Glucose 333 mg/dL (74-106)
[2023-12-29] MEDS: 0.9% Normal Saline (1000mL) 1,000 ML 175 ML IV (20:21)
[2023-12-29] MEDS: Carvedilol 25 MG Tablet PO (20:59)
[2023-12-29] MEDS: APIXABAN 5 MG TABLET PO (20:59)
[2023-12-29 21:00] VITALS: BP 142/82; PULSE 73; RESP 19; TEMP 36.3; O2SAT 96
[2023-12-29 21:56] LABS: Bedside Glucose 296 mg/dL (74-106)
[2023-12-29] MEDS: Insulin Lispro 100 UNIT/ML INSULN.PEN SC (22:48)
[2023-12-29] MEDS: Insulin Glargine-YFGN 100 UNIT/ML Pen 20 UNIT SC (22:48)
[2023-12-29 23:08] LABS: Bedside Glucose 204 mg/dL (74-106)
[2023-12-29 23:08] LABS: Bedside Glucose 250 mg/dL (74-106)
[2023-12-30 00:07] LABS: Bedside Glucose 173 mg/dL (74-106)
[2023-12-30 02:01] LABS: Anion Gap 5 (5-15); BUN 32 mg/dL (7-18); BUN/Creat Ratio 19.9 RATIO (10-20); Calcium,Total 8.2 mg/dL (8.5-10.1); Chloride 110 mmol/L (98-107); Creatinine, Serum 1.61 mg/dL (0.70-1.30); EST Glomerular Filtration Rate 47 mL/min (>60); Est Glom Filt Rate - Afr Amer 57 mL/min (>60); Estimated Creatinine Clearance 72.45 ml/min; Glucose 193 mg/dL (74-106); Potassium 4.3 mmol/L (3.5-5.1); Sodium Level 137 mmol/L (136-145)
[2023-12-30 02:31] VITALS: BP 138/88; PULSE 59; RESP 17; TEMP 36.6; O2SAT 95
[2023-12-30 03:09] VITALS: BMI 34.9
[2023-12-30 05:30] LABS: Absolute Lymphocyte Count 1.43 X10^3/uL (0.83-4.51); Absolute Neutrophil Count 2.9 X10^3/uL (2.0-7.7); Basophil# 0.04 X10^3/uL; Basophil% 0.8 % (0-1); Eosinophils% 2.1 % (0-5); Hematocrit 38.2 % (40-54); Hemoglobin 12.9 g/dL (13.0-16.5); Lymphocyte # 1.43 X10^3/ul (0.83-4.51); Lymphocyte % 30.2 % (19-41); Mean Corp Hgb Conc 33.8 g/dL (32-36); Mean Corpuscular Hgb 29.5 pg (27.0-32.0); Mean Corpuscular Volume 87.2 fL (80-94); Mean Platelet Vol. 11.2 fl (6.2-12.0); Monocyte# 0.26 X10^3/uL; Monocyte% 5.5 % (0-10); NRBC Flagged by Analyzer 0 % (0-5); Neutrophil # 2.88 X10^3/uL (2.7-7.7); Platelet Count 126 K/mm3 (150-450); RBC Distribution Width CV 12.4 % (11.6-14.6); RBC Distribution Width SD 39.6 fl (35.1-43.9); Red Blood Count 4.38 M/mm3 (4.6-6.2); White Blood Count 4.7 K/mm3 (4.4-11.0)
[2023-12-30 05:54] LABS: Anion Gap 4 (5-15); BUN 30 mg/dL (7-18); BUN/Creat Ratio 18.1 RATIO (10-20); Calcium,Total 8.7 mg/dL (8.5-10.1); Chloride 108 mmol/L (98-107); Creatinine, Serum 1.66 mg/dL (0.70-1.30); EST Glomerular Filtration Rate 46 mL/min (>60); Est Glom Filt Rate - Afr Amer 55 mL/min (>60); Estimated Creatinine Clearance 70.49 ml/min; Glucose 313 mg/dL (74-106); Magnesium 2.2 mg/dL (1.6-2.6); Phosphorus 3.1 mg/dL (2.5-4.9); Potassium 4.8 mmol/L (3.5-5.1); Sodium Level 134 mmol/L (136-145)
[2023-12-30] MEDS: Insulin Lispro 100 UNIT/ML INSULN.PEN SC (06:50)
[2023-12-30 07:11] LABS: Bedside Glucose 321 mg/dL (74-106)
[2023-12-30 08:25] VITALS: BP 133/85; PULSE 76; RESP 12; TEMP 36.4; O2SAT 97
[2023-12-30] MEDS: Carvedilol 25 MG Tablet PO (08:30)
[2023-12-30] MEDS: APIXABAN 5 MG TABLET PO (08:30)
[2023-12-30] MEDS: amLODIPine 10 MG Tablet PO (08:30)
--- NOTE | 2023-12-30 08:45 | PCM.PN.HOSP ---
Reason for Visit Reason for Visit: Diagnoses Type 2 diabetes mellitus without complications (12/29/23) Hyperkalemia (12/29/23) Acute kidney failure, unspecified (12/29/23) Hyperglycemia, unspecified (12/29/23) Subjective Subjective Patient seen glucose levels improved remarkably as well as improvement in kidney function. Patient is requesting to be discharged home Objective Data Objective Data Vital Signs: Vital Signs Temp Pulse Resp BP Pulse Ox O2 Del Method 97.5 F L 76 12 133/85 H 97 Room Air 12/30/23 08:25 12/30/23 08:25 12/30/23 08:25 12/30/23 08:25 12/30/23 08:25 12/30/23 08:25 Oxygen Delivery Method Room Air Weight: 127 kg Body Mass Index (BMI) 34.9 Intake & Output: Intake and Output for Last 24 Hours 12/28/23 12/29/23 12/30/23 23:59 23:59 23:59 Intake Total 5016.35 / 5016.35 968.33 / 968.33 Output Total 0 / 0 Balance 5016.35 / 5016.35 968.33 / 968.33 Lab / Micro Data 12/30/23 05:14 12/30/23 05:14 Labs: Laboratory Results - last 24 hr 12/29/23 11:02: POC Glucose > 500 H* 12/29/23 11:15: WBC 5.2, RBC 4.53 L, Hgb 13.5, Hct 39.5 L, MCV 87.2, MCH 29.8, MCHC 34.2, RDW Std Deviation 39.2, RDW Coeff of Ramu 12.2, Plt Count 141 L, MPV 11.2, Immature Gran % (Auto) 0.400, Neut % (Auto) 70.4 H, Lymph % (Auto) 20.0, [place] % (Auto) 6.6, Eos % (Auto) 1.6, Baso % (Auto) 1.0, Absolute Neuts (auto) 3.6, Absolute Lymphs (auto) 1.03, Nucleated RBC % 0, Sodium 120 L, Potassium 5.9 H, Chloride 89 L, Carbon Dioxide 20.0 L, Anion Gap 11, BUN 53 H, Creatinine 3.01 H, Estim Creat Clear Calc 38.84, Est GFR (MDRD) Af Amer 28 L, Est GFR (MDRD) Non-Af 23 L, BUN/Creatinine Ratio 17.6, Glucose 882 H*, Hemoglobin A1c 9.3 H, Calcium 8.9, Total Bilirubin 1.30 H, AST 30, ALT 34, Alkaline Phosphatase 112, Total Protein 7.7, Albumin 3.9, Globulin 3.8, Albumin/Globulin Ratio 1.0 12/29/23 11:44: Urine Color Yellow, Urine Clarity Clear, Urine pH 6.0, Ur Specific [place] 1.010, Urine Protein Negative, Urine Glucose (UA) 1000 H, Urine Ketones 5 H, Urine Occult Blood 25 H, Urine Nitrite Negative, Urine Bilirubin Negative, Urine Urobilinogen Normal, Ur Leukocyte Esterase Negative, Urine RBC 0 SEEN, Urine WBC 0-5 SEEN, Ur Squamous Epith Cells 0-5 SEEN, Urine Bacteria RARE, Urine Mucus 0 SEEN 12/29/23 11:48: Acetone Level NEGATIVE 12/29/23 13:07: Sodium 126 L, Potassium 5.2 H, Chloride 95 L, Carbon Dioxide 19.0 L, Anion Gap 12, BUN 50 H, Creatinine 2.71 H, Estim Creat Clear Calc 43.04, Est GFR (MDRD) Af Amer 31 L, Est GFR (MDRD) Non-Af 26 L, BUN/Creatinine Ratio 18.5, Glucose 700 H*, Calcium 8.8, Troponin I High Sens 6 12/29/23 13:21: POC Glucose > 500 H* 12/29/23 14:56: POC Glucose 445 H 12/29/23 15:03: Sodium 133 L, Potassium 4.1, Chloride 103, Carbon Dioxide 23.0, Anion Gap 7, BUN 45 H, Creatinine 2.42 H, Estim Creat Clear Calc 48.20, Est GFR (MDRD) Af Amer 36 L, Est GFR (MDRD) Non-Af 30 L, BUN/Creatinine Ratio 18.6, Glucose 468 H*, Calcium 8.8, Troponin I High Sens 7 12/29/23 15:52: POC Glucose 402 H 12/29/23 16:59: POC Glucose 359 H 12/29/23 17:45: POC Glucose 396 H 12/29/23 18:49: POC Glucose 371 H 12/29/23 18:59: Sodium 134 L, Potassium 4.3, Chloride 104, Carbon Dioxide 24.0, Anion Gap 6, BUN 37 H, Creatinine 2.25 H, Estim Creat Clear Calc 51.84, Est GFR (MDRD) Af Amer 39 L, Est GFR (MDRD) Non-Af 32 L, BUN/Creatinine Ratio 16.4, Glucose 362 H, Calcium 8.4 L, Troponin I High Sens 7 12/29/23 19:59: POC Glucose 333 H 12/29/23 20:56: POC Glucose 296 H 12/29/23 22:03: POC Glucose 250 H 12/29/23 22:47: POC Glucose 204 H 12/29/23 23:48: POC Glucose 173 H 12/30/23 00:55: Sodium 137, Potassium 4.3, Chloride 110 H, Carbon Dioxide 22.0, Anion Gap 5, BUN 32 H, Creatinine 1.61 H, Estim Creat Clear Calc 72.45, Est GFR (MDRD) Af Amer 57 L, Est GFR (MDRD) Non-Af 47 L, BUN/Creatinine Ratio 19.9, Glucose 193 H, Calcium 8.2 L 12/30/23 05:14: WBC 4.7, RBC 4.38 L, Hgb 12.9 L, Hct 38.2 L, MCV 87.2, MCH 29.5, MCHC 33.8, RDW Std Deviation 39.6, RDW Coeff of Ramu 12.4, Plt Count 126 L, MPV 11.2, Immature Gran % (Auto) 0.400, Neut % (Auto) 61.0, Lymph % (Auto) 30.2, [place] % (Auto) 5.5, Eos % (Auto) 2.1, Baso % (Auto) 0.8, Absolute Neuts (auto) 2.9, Absolute Lymphs (auto) 1.43, Nucleated RBC % 0, Sodium 134 L, Potassium 4.8, Chloride 108 H, Carbon Dioxide 22.0, Anion Gap 4 L, BUN 30 H, Creatinine 1.66 H, Estim Creat Clear Calc 70.49, Est GFR (MDRD) Af Amer 55 L, Est GFR (MDRD) Non-Af 46 L, BUN/Creatinine Ratio 18.1, Glucose 313 H, Calcium 8.7, Phosphorus 3.1, Magnesium 2.2 12/30/23 06:50: POC Glucose 321 H Physical Exam Narrative GENERAL: cooperative HEENT: Atraumatic; normocephalic EYES; Anicteric, Normal Conjunctiva NECK; supple, normal thyroid, RESPIRATORY: Diminished to auscultation CARDIOVASCULAR: Regular S1 S2, GI: soft, normoactive bowel sounds, : No Renal angle tenderness; EXTREMITIES: No edema, no clubbing, MUSCULOSKELETAL: no muscle wasting NEURO: Awake; no lateralizing signs. SKIN: No Rash PSYCH; Flat affect Assessment & Plan Assessment/Plan (1) Acute kidney injury: (2) Acute hyperkalemia: (3) Acute hyperglycemia: (4) New onset type 2 diabetes mellitus: PLAN: Plan Patient is a 58-year-old gentleman presenting with blurred vision and frequent urination found to have hyperglycemia consistent with new onset diabetes melitis type II 1. Hyperosmolar nonketotic state ? Patient has been admitted to monitored bed started on aggressive IV fluid resuscitation as well as insulin with Q4 for BMP ordered ? 12/30/2023; hyperosmolar nonketotic state resolved 2. Hyponatremia ? Secondary to pseudohyponatremia from patient hyperglycemia do expect improvement with treatment of patient underlying hyperglycemia ? 12/30/2023; sodium levels up to 134 3. New onset diabetes mellitus type 2 ? Patient presented with HONK plan is to start long-acting insulin once patient hypoglycemic nonketotic state resolves. Patient was to be provided with diabetic education -12/30/2023 ; placed on long acting insulin, Accu-Cheks a.c. and at bedtime and covered with sliding scale insulin 4. Acute kidney injury -Patient started on IV fluid with subsequent monitoring of lites ordered ? 12/30/2023; kidney function improved and back to baseline 5. Hyperkalemia ? Secondary to MATTEO patient is on lisinopril discontinued patient did receive albuterol as well as glucose with insulin in the ED EKG obtained ? 12/30/2023 hyperkalemia resolved 6. Chronic kidney disease stage IIIa with baseline creatinine of 1.5 ? Patient presented with MATTEO management as discussed above 7. History of renal cell carcinoma ? Status post nephrectomy with subsequent neoadjuvant chemotherapy with Keytruda 8. History of left lower extremity DVT ? Patient is on systemic anticoagulation with apixaban 9. Hypertension - Blood pressure controlled, home medications except for lisinopril continued with dose adjustment as needed 10. Class I obesity with BMI of 35 ? Complicating care weight loss advised 11. DVT prophylaxis patient already on apixaban Time spent in the patient's overall evaluation,decision-making process, review of diagnostic data, adjustment of management, discussion with other providers, nursing nursing and ancillary staff involved in patient's care documentation, 35 Minutes Charges/Coding Visit Charges Inpatient E&M: 01062 Subs Hosp L2
--- NOTE | 2023-12-30 09:32 | DS.PCM_ITS ---
Providers Date of Admission: 12/29/23 Date of Discharge: 12/30/23 Primary Care Physician: Dr. Jamin Pineda MD Reason For Visit: HYPEROSMOLAR NONKETOTIC STATE, ACUTE KIDNEY INJURY Diagnosis Discharge Diagnosis (1) Acute kidney injury: Status: Acute Code(s): N17.9 - Acute kidney failure, unspecified (2) Acute hyperkalemia: Status: Acute Code(s): E87.5 - Hyperkalemia (3) Acute hyperglycemia: Status: Acute Code(s): R73.9 - Hyperglycemia, unspecified (4) New onset type 2 diabetes mellitus: Status: Acute Code(s): E11.9 - Type 2 diabetes mellitus without complications Plan Patient is a 58-year-old gentleman presenting with blurred vision and frequent urination found to have hyperglycemia consistent with new onset diabetes melitis type II 1. Hyperosmolar nonketotic state ? Patient has been admitted to monitored bed started on aggressive IV fluid resuscitation as well as insulin with Q4 for BMP ordered ? 12/30/2023; hyperosmolar nonketotic state resolved ? Plan was for patient to have stated at least 2 midnight however given his expected rather rapid recovery and his request to be discharged home patient was discharged home prescription written for insulin 2. Hyponatremia ? Secondary to pseudohyponatremia from patient hyperglycemia do expect improvement with treatment of patient underlying hyperglycemia ? 12/30/2023; sodium levels up to 134 3. New onset diabetes mellitus type 2 ? Patient presented with HONK plan is to start long-acting insulin once patient hypoglycemic nonketotic state resolves. Patient was to be provided with diabetic education -12/30/2023 ; placed on long acting insulin, Accu-Cheks a.c. and at bedtime and covered with sliding scale insulin 4. Acute kidney injury -Patient started on IV fluid with subsequent monitoring of lites ordered ? 12/30/2023; kidney function improved and back to baseline 5. Hyperkalemia ? Secondary to MATTEO patient is on lisinopril discontinued patient did receive albuterol as well as glucose with insulin in the ED EKG obtained ? 12/30/2023 hyperkalemia resolved 6. Chronic kidney disease stage IIIa with baseline creatinine of 1.5 ? Patient presented with MATTEO management as discussed above 7. History of renal cell carcinoma ? Status post nephrectomy with subsequent neoadjuvant chemotherapy with Keytruda 8. History of left lower extremity DVT ? Patient is on systemic anticoagulation with apixaban 9. Hypertension - Blood pressure controlled, home medications except for lisinopril continued with dose adjustment as needed 10. Class I obesity with BMI of 35 ? Complicating care weight loss advised 11. DVT prophylaxis patient already on apixaban Time spent in the patient's overall evaluation,decision-making process, review of diagnostic data, adjustment of management, discussion with other providers, nursing nursing and ancillary staff involved in patient's care documentation, 35 Minutes Medications at Discharge Home Medications acetaminophen 500 mg capsule 500 mg PO Q8H PRN pain 12/29/23 amlodipine 10 mg tablet 10 mg PO DAILY HTN 12/29/23 apixaban 5 mg tablet (Eliquis) 5 mg PO BID DVT 12/29/23 carvedilol 25 mg tablet 25 mg PO BID Heart 12/29/23 amlodipine 5 mg tablet 5 mg PO DAILY #60 tabs 12/30/23 insulin glargine 100 unit/mL (3 mL) subcutaneous pen (iCarsClubaglar KwikPen U-100 Insulin) 15 unit (0.15 mL) subcut BID #45 mL 12/30/23 pen needle, diabetic 31 gauge x 5/32 #300 ea 12/30/23 Physical Exam Narrative GENERAL: cooperative HEENT: Atraumatic; normocephalic EYES; Anicteric, Normal Conjunctiva NECK; supple, normal thyroid, RESPIRATORY: Diminished to auscultation CARDIOVASCULAR: Regular S1 S2, GI: soft, normoactive bowel sounds, : No Renal angle tenderness; EXTREMITIES: No edema, no clubbing, MUSCULOSKELETAL: no muscle wasting NEURO: Awake; no lateralizing signs. SKIN: No Rash PSYCH; Flat affect Weight / BMI Weight Weight: 127 kg Body Mass Index (BMI) 34.9 ABG / Lab / Microbiology Data 12/30/23 05:14 12/30/23 05:14 Laboratory: Laboratory Results - last 24 hr 12/29/23 11:02: POC Glucose > 500 H* 12/29/23 11:15: WBC 5.2, RBC 4.53 L, Hgb 13.5, Hct 39.5 L, MCV 87.2, MCH 29.8, MCHC 34.2, RDW Std Deviation 39.2, RDW Coeff of Ramu 12.2, Plt Count 141 L, MPV 11.2, Immature Gran % (Auto) 0.400, Neut % (Auto) 70.4 H, Lymph % (Auto) 20.0, [place] % (Auto) 6.6, Eos % (Auto) 1.6, Baso % (Auto) 1.0, Absolute Neuts (auto) 3.6, Absolute Lymphs (auto) 1.03, Nucleated RBC % 0, Sodium 120 L, Potassium 5.9 H, Chloride 89 L, Carbon Dioxide 20.0 L, Anion Gap 11, BUN 53 H, Creatinine 3.01 H, Estim Creat Clear Calc 38.84, Est GFR (MDRD) Af Amer 28 L, Est GFR (MDRD) Non-Af 23 L, BUN/Creatinine Ratio 17.6, Glucose 882 H*, Hemoglobin A1c 9.3 H, Calcium 8.9, Total Bilirubin 1.30 H, AST 30, ALT 34, Alkaline Phosphatase 112, Total Protein 7.7, Albumin 3.9, Globulin 3.8, Albumin/Globulin Ratio 1.0 12/29/23 11:44: Urine Color Yellow, Urine Clarity Clear, Urine pH 6.0, Ur Specific [place] 1.010, Urine Protein Negative, Urine Glucose (UA) 1000 H, Urine Ketones 5 H, Urine Occult Blood 25 H, Urine Nitrite Negative, Urine Bilirubin Negative, Urine Urobilinogen Normal, Ur Leukocyte Esterase Negative, Urine RBC 0 SEEN, Urine WBC 0-5 SEEN, Ur Squamous Epith Cells 0-5 SEEN, Urine Bacteria RARE, Urine Mucus 0 SEEN 12/29/23 11:48: Acetone Level NEGATIVE 12/29/23 13:07: Sodium 126 L, Potassium 5.2 H, Chloride 95 L, Carbon Dioxide 19.0 L, Anion Gap 12, BUN 50 H, Creatinine 2.71 H, Estim Creat Clear Calc 43.04, Est GFR (MDRD) Af Amer 31 L, Est GFR (MDRD) Non-Af 26 L, BUN/Creatinine Ratio 18.5, Glucose 700 H*, Calcium 8.8, Troponin I High Sens 6 12/29/23 13:21: POC Glucose > 500 H* 12/29/23 14:56: POC Glucose 445 H 12/29/23 15:03: Sodium 133 L, Potassium 4.1, Chloride 103, Carbon Dioxide 23.0, Anion Gap 7, BUN 45 H, Creatinine 2.42 H, Estim Creat Clear Calc 48.20, Est GFR (MDRD) Af Amer 36 L, Est GFR (MDRD) Non-Af 30 L, BUN/Creatinine Ratio 18.6, G lucose 468 H*, Calcium 8.8, Troponin I High Sens 7 12/29/23 15:52: POC Glucose 402 H 12/29/23 16:59: POC Glucose 359 H 12/29/23 17:45: POC Glucose 396 H 12/29/23 18:49: POC Glucose 371 H 12/29/23 18:59: Sodium 134 L, Potassium 4.3, Chloride 104, Carbon Dioxide 24.0, Anion Gap 6, BUN 37 H, Creatinine 2.25 H, Estim Creat Clear Calc 51.84, Est GFR (MDRD) Af Amer 39 L, Est GFR (MDRD) Non-Af 32 L, BUN/Creatinine Ratio 16.4, G [place]ose 362 H, Calcium 8.4 L, Troponin I High Sens 7 12/29/23 19:59: POC Glucose 333 H 12/29/23 20:56: POC Glucose 296 H 12/29/23 22:03: POC Glucose 250 H 12/29/23 22:47: POC Glucose 204 H 12/29/23 23:48: POC Glucose 173 H 12/30/23 00:55: Sodium 137, Potassium 4.3, Chloride 110 H, Carbon Dioxide 22.0, Anion Gap 5, BUN 32 H, Creatinine 1.61 H, Estim Creat Clear Calc 72.45, Est GFR (MDRD) Af Amer 57 L, Est GFR (MDRD) Non-Af 47 L, BUN/Creatinine Ratio 19.9, G lucose 193 H, Calcium 8.2 L 12/30/23 05:14: WBC 4.7, RBC 4.38 L, Hgb 12.9 L, Hct 38.2 L, MCV 87.2, MCH 29.5, MCHC 33.8, RDW Std Deviation 39.6, RDW Coeff of Ramu 12.4, Plt Count 126 L, MPV 11.2, Immature Gran % (Auto) 0.400, Neut % (Auto) 61.0, Lymph % (Auto) 30.2, [place] % (Auto) 5.5, Eos % (Auto) 2.1, Baso % (Auto) 0.8, Absolute Neuts (auto) 2.9, Absolute Lymphs (auto) 1.43, Nucleated RBC % 0, Sodium 134 L, Potassium 4.8, Chloride 108 H, Carbon Dioxide 22.0, Anion Gap 4 L, BUN 30 H, Creatinine 1.66 H, Estim Creat Clear Calc 70.49, Est GFR (MDRD) Af Amer 55 L, Est GFR (MDRD) Non-Af 46 L, BUN/Creatinine Ratio 18.1, Glucose 313 H, Calcium 8.7, Phosphorus 3.1, Magnesium 2.2 12/30/23 06:50: POC Glucose 321 H D/C Instructions Discharge Diet: 1800 Calorie Control Diet Discharge Activity: Return to Normal Activity Call your doctor if you observe: Fever of 101 or Higher, Shortness of breath, Fainting spells and Chest pain Meaningful Use Info Meaningful Use Meaningful Use Diagnoses (Choose all that apply): None applicable Ischemic Stroke Statin Dosing Therapy Reference: STATIN DOSE THERAPY REFERENCE: * Patients > 75 years receive moderate or high dose statin therapy. * Patients 75 years or YOUNGER should receive HIGH intensity statin dose unless contraindicated. You will be required to document reason for non-treatment if statin daily dose does not meet guidelines. HIGH DOSE STATIN THERAPY DAILY Atorvastatin > than or = to 40 mg Rosuvastatin > than or = to 20 mg Amlodipine + Atorvastatin > than or = to 2.5/40 mg Ezetimibe + Simvastatin 10/80 mg Simvastatin 80mg Discharge Plan Admission Admit Date/Time: 12/29/23 12:17 Attending Provider: Feliberto Pollock Primary Care Provider: Jamin Pineda Discharge Orders/Prescriptions Prescriptions: New insulin glargine [Basaglar KwikPen U-100 Insulin] 100 unit/mL (3 mL) insulin pen 15 unit subcut BID Qty: 45 0RF (DME) pen needle, diabetic 31 gauge x 5/32 needle See Rx Instructions .ROUTE .MEDSUPPLY Qty: 300 0RF Rx Instructions: TID AC amlodipine 5 mg tablet 5 mg PO DAILY Qty: 60 0RF Continued carvedilol 25 mg tablet 25 mg PO BID amlodipine 10 mg tablet 10 mg PO DAILY Eliquis 5 mg tablet 5 mg PO BID acetaminophen 500 mg capsule 500 mg PO Q8H PRN (Reason: pain) Discontinued lisinopril 40 mg tablet 80 mg PO DAILY Referrals / Follow Up: Jamin Pineda MD [Primary Care Provider] - 01/01/24 5:00 pm Disposition Disposition (needs filled in before D/C Order can be placed): Home, Self Care Charges/Coding Visit Charges Inpatient E&M: 40637 Disch Hosp >30min
[2023-12-30] MEDS: Insulin Glargine-YFGN 100 UNIT/ML Pen 25 UNIT SC (10:10)
[2023-12-30 10:17] LABS: Anion Gap 4 (5-15); BUN 29 mg/dL (7-18); BUN/Creat Ratio 17.6 RATIO (10-20); Calcium,Total 8.7 mg/dL (8.5-10.1); Chloride 106 mmol/L (98-107); Creatinine, Serum 1.65 mg/dL (0.70-1.30); EST Glomerular Filtration Rate 46 mL/min (>60); Est Glom Filt Rate - Afr Amer 56 mL/min (>60); Estimated Creatinine Clearance 70.91 ml/min; Glucose 384 mg/dL (74-106); Potassium 4.9 mmol/L (3.5-5.1); Sodium Level 133 mmol/L (136-145)
[2023-12-30 12:01] LABS: Hemoglobin A1c 9.5 % (3.8-5.6)
== END 2023-12-30 11:38 | disposition home or self-care (01) | DRG 683 ==
LOC: ED 12:41 → PCU 12:47
PROVIDERS: Nurse Practitioner; Admitting Provider Internal Medicine; Emergency Provider Emergency Medicine; PCP Family Medicine; Visit Provider Internal Medicine
DX: N17.9 Acute kidney failure, unspecified (principal); E87.0 Hyperosmolality and hypernatremia; E87.1 Hypo-osmolality and hyponatremia; E11.22 Type 2 diabetes mellitus with diabetic chronic kidney disease; N18.31 Chronic kidney disease, stage 3a; E11.65 Type 2 diabetes mellitus with hyperglycemia; I12.9 Hypertensive chronic kidney disease with stage 1 through stage 4 chronic kidney disease, or unspecified chronic kidney disease; E87.5 Hyperkalemia; Z68.35 Body mass index [BMI] 35.0-35.9, adult; Z66 Do not resuscitate; Z90.5 Acquired absence of kidney; E66.9 Obesity, unspecified; Z85.528 Personal history of other malignant neoplasm of kidney; Z86.718 Personal history of other venous thrombosis and embolism
CPT/HCPCS: 36415; 80048; 80053; 81001; 82009; 82962; 83036; 83735; 84100; 84484; 85025; 93005; 94668; 99283; J7030; A4216